=== PATIENT | male | born 1955 | race Caucasian/White ===

== ENCOUNTER 2017-06-02 11:15 | Day surgery (SDC) | payer BC, OTHER ==
[2017-05-27 10:40] LABS: HEMOGLOBIN 15.1 g/dL (13.5-17.0); MEAN CORPUSCULAR HEMOGLOBIN 31.3 pg (27.0-33.4); MEAN CORPUSCULAR HGB CONC 33.5 g/dL (32.0-36.0); MEAN CORPUSCULAR VOLUME 94 fl (80-97); PLATELET COUNT 264 10^3/uL (150-450); RED BLOOD COUNT 4.82 10^6/uL (4.35-5.55); RED CELL DISTRIBUTION WIDTH 13.5 % (11.5-14.0); WHITE BLOOD COUNT 10.2 10^3/uL (4.0-10.5)
--- NOTE | 2017-05-27 13:05 | EKG REPORT ---
SEVERITY:- NORMAL ECG - SINUS RHYTHM : Confirmed by: Ty Saha MD 27-May-2017 13:05:06
[2017-06-02] MEDS ORDERED: PROPOFOL INJ 200 MG/20 ML VIAL IV ONE (12:27)
[2017-06-02] MEDS ORDERED: DIPHENHYDRAMINE HCL 50 MG/ML VIAL IV PRN (12:29)
--- NOTE | 2017-06-02 13:25 | Operative Report ---
Operative Report DATE OF SURGERY: 06/02/17 PREOPERATIVE DIAGNOSIS: Personal history of colon polyp POSTOPERATIVE DIAGNOSIS: Same with 2 polyps, one at the splenic flexure, second the left colon OPERATION: 1. Total colonoscopy to cecum with photodocumentation. 2. Splenic : Polypectomy. 3. Left colon polypectomy SURGEON: CECILIA VASQUEZ ANESTHESIA: LMAC TISSUE REMOVED OR ALTERED: Polyps 2 COMPLICATIONS: None ESTIMATED BLOOD LOSS: Scant INTRAOPERATIVE FINDINGS: See below PROCEDURE: Obtaining informed consent the patient was taken from the preoperative holding area to the main endoscopy suite where monitoring devices were attached to the patient. Plan and surgical timeout were conducted The patient was placed in the left lateral decubitus position with knees to chest. A perianal examination was performed. There was no visible or palpable anorectal pathology. Sphincter tone was felt to be normal. The flexible adult colonoscope was advanced through the anal rectal canal, all the way to the cecum. Transillumination visualization of the cecum was achieved and the ileocecal valve, the appendiceal orifice and transillumination of the anterior abdominal wall. This was an excellent study on the well- prepped bowel. The colonoscope was withdrawn slowly and methodically checked and the mucosa carefully. There were scattered diverticulosis of the left colon. In the splenic flexure there was a small pedunculated polyp approximately 2 mm in diameter which was removed with the cold forceps device, bleeding minimal in specimen labeled a splenic flexure polyp. In the left colon approximately 60 cm from the anal verge was a sessile polyp approximately 4 mm in diameter photographed and removed with a hot snare medium strength device. Specimen was retrieved and labeled as left colon polyp. Bleeding at polypectomy site was none. Photograph was taken. The scope was slowly withdrawn through the anal rectal canal. Internal hemorrhoids appreciated. Complete visualization of the rectum was achieved with photodocumentation. The scope was withdrawn to the patient's anus. The patient tolerated the procedure well and was taken to the recovery area in stable condition. Per surveillance guidelines, patient be appropriate candidate for follow-up colonoscopy in 3 years, or sooner if symptoms develop.
[2017-06-02 15:32] VITALS: BP 139/87
== END 2017-06-02 14:50 | disposition home or self-care (01) ==
LOC: OROUT 11:15
PROVIDERS: ATTEND Surgery
PROC: 0DBG8ZX Excision of Left Large Intestine, Via Natural or Artificial Opening Endoscopic, Diagnostic (ICD-10-PCS; principal; 2017-06-02 13:30)
PROC: 0DBL8ZX Excision of Transverse Colon, Via Natural or Artificial Opening Endoscopic, Diagnostic (ICD-10-PCS; 2017-06-02 13:30)
DX: Z12.11 Encounter for screening for malignant neoplasm of colon (principal); K63.5 Polyp of colon; K57.30 Diverticulosis of large intestine without perforation or abscess without bleeding; K64.8 Other hemorrhoids; Z86.010 Personal history of colon polyps; E78.00 Pure hypercholesterolemia, unspecified; E66.9 Obesity, unspecified; F17.210 Nicotine dependence, cigarettes, uncomplicated; Z79.899 Other long term (current) drug therapy; Z68.42 Body mass index [BMI] 45.0-49.9, adult
CPT/HCPCS: 45380; 45385; 93005; 36415; 85027; 88305 ×2; 93010; J2704; 812